=== PATIENT | female | born 1990 | race Caucasian/White ===

== ENCOUNTER 2016-12-17 23:31 | Inpatient (IN) | payer OTHER ==
[2016-12-18] MEDS ORDERED: Penicillin G Potassium IV* 5 MILLION.UNITS VIAL ONE (00:29)
[2016-12-18 00:46] LABS: Hematocrit 37 % (35-47); Hemoglobin 12.4 g/dl (12.0-16.0); Mean Corpuscular HGB Conc 34 g/dl (31-36); Mean Corpuscular Hemoglobin 32 pg (27-31); Mean Corpuscular Volume 94 fL (80-97); Mean Platelet Volume 12 um3 (7.4-10.4); Red Blood Count 3.94 10^6/ul (4.0-5.4); Red Cell Distribution Width 13 % (10.5-15); White Blood Count 17.2 10^3/ul (3.5-10.8)
[2016-12-18] MEDS ORDERED: OBEPIDURAL* 250 ML ONE (00:57)
[2016-12-18] MEDS ORDERED: Famotidine TAB* 20 MG PO PRN (01:18)
[2016-12-18] MEDS ORDERED: Sodium Citrate/Citric Acid* 15 ML UDC PO PRN (01:18)
[2016-12-18] MEDS ORDERED: EPHEDrine (Pressors)* 50 MG/ML VIAL IV PUSH PRN (01:18)
[2016-12-18] MEDS ORDERED: Phenylephrine IV* 40 MCG/ML 10 ML SYRINGE IV PUSH PRN (01:18)
[2016-12-18 01:31] LABS: Albumin 3.7 g/dL (3.2-5.2); BUN/Creatinine Ratio 16.4 (8-20); Calcium 8.9 mg/dL (8.6-10.3); EGFR African American 136.8 (>60); EGFR Non-African American 106.4 (>60); Globulin 3.2 g/dL (2-4); Total Bilirubin 0.4 mg/dL (0.2-1.0); Total Protein 6.9 g/dL (6.4-8.9)
[2016-12-18] MEDS ORDERED: OBEPIDURAL* 250 ML EPIDURAL SCH (02:00)
[2016-12-18] MEDS ORDERED: Oxytocin in LR* 20 UNITS/1,000 ML BAG IVPB ONE (05:51)
[2016-12-18] MEDS ORDERED: Misoprostol TAB* 200 MCG ONE (05:55)
[2016-12-18] MEDS ORDERED: Dibucaine 1% 28.35 GM TUBE PR PRN (06:17)
[2016-12-18] MEDS ORDERED: Glycerin ADULT SUPP PR PRN (06:17)
[2016-12-18] MEDS ORDERED: Misoprostol TAB* 200 MCG PR ONE (06:17)
[2016-12-18] MEDS ORDERED: Witch Hazel PAD* JAR TOPICAL PRN (06:17)
[2016-12-18] MEDS ORDERED: oxyCODONE/Acetamin 5/325 MG* TAB PO PRN (06:17)
[2016-12-18] MEDS ORDERED: Acetaminophen TAB* 325 MG PO PRN (06:17)
[2016-12-18] MEDS: Docusate CAP* 100 MG PO SCH ×3 (08:37→21:13)
[2016-12-18] MEDS: Ibuprofen TAB* 600 MG PO PRN ×2 (14:22→21:12)
[2016-12-18] MEDS: Simethicone CHEW TAB* 80 MG PO SCH ×2 (14:23→14:24)
[2016-12-19 07:03] LABS: Hematocrit 30 % (35-47); Hemoglobin 10.2 g/dl (12.0-16.0); Mean Corpuscular HGB Conc 34 g/dl (31-36); Mean Corpuscular Hemoglobin 32 pg (27-31); Mean Corpuscular Volume 96 fL (80-97); Mean Platelet Volume 12 um3 (7.4-10.4); Red Blood Count 3.18 10^6/ul (4.0-5.4); Red Cell Distribution Width 13 % (10.5-15); White Blood Count 14.1 10^3/ul (3.5-10.8)
[2016-12-19] MEDS: Ibuprofen TAB* 600 MG PO PRN ×3 (07:51→22:22)
[2016-12-19] MEDS: Docusate CAP* 100 MG PO SCH ×3 (07:52→22:22)
[2016-12-19] MEDS ORDERED: Ferrous Gluconate TAB* 324 MG TAB PO SCH (09:00)
[2016-12-19] MEDS: Simethicone CHEW TAB* 80 MG PO SCH (10:33)
[2016-12-20 08:20] VITALS: BP 136/74
[2016-12-20] MEDS ORDERED: Ammonia Inhalant* 1 EA AMP ONE (09:25)
== END 2016-12-20 10:27 | disposition home or self-care (01) | DRG 560 ==
LOC: MCHOBOUT 23:31 → MCHOB 12-18 00:06
PROVIDERS: ADMIT Nurse Practitioner; ATTEND Obstetrics & Gynecology
PROC: 10D07Z6 Extraction of Products of Conception, Vacuum, Via Natural or Artificial Opening (ICD-10-PCS; principal; 2016-12-18)
PROC: 10907ZC Drainage of Amniotic Fluid, Therapeutic from Products of Conception, Via Natural or Artificial Opening (ICD-10-PCS; 2016-12-18)
PROC: 4A1HXCZ Monitoring of Products of Conception, Cardiac Rate, External Approach (ICD-10-PCS; 2016-12-18)
PROC: 0W8NXZZ Division of Female Perineum, External Approach (ICD-10-PCS; 2016-12-18)
PROC: 10H073Z Insertion of Monitoring Electrode into Products of Conception, Via Natural or Artificial Opening (ICD-10-PCS; 2016-12-18)
PROC: 4A1H7CZ Monitoring of Products of Conception, Cardiac Rate, Via Natural or Artificial Opening (ICD-10-PCS; 2016-12-18)
DX: O69.3XX0 Labor and delivery complicated by short cord, not applicable or unspecified (principal); O99.824 Streptococcus B carrier state complicating childbirth; Z3A.39 39 weeks gestation of pregnancy; Z37.0 Single live birth; O76 Abnormality in fetal heart rate and rhythm complicating labor and delivery
CPT/HCPCS: 36415; 80053; 85025; 85027; 86850; 86900; 86901; A9270-GY; J2540

== ENCOUNTER 2017-08-05 07:12 | Emergency (ER) | payer OTHER ==
[2017-08-05 07:24] VITALS: BP 151/93
--- NOTE | 2017-08-05 11:18 | UC ---
Tc Bowman Elizabeth, scribed for Nataliia Mcnamara DO on 08/05/17 at 0814 . General HPI - HPI Summary HPI Summary: The patient is a 27 year old female complaining of jaw pain and fever that began 5 days ago. Pt thought that she had a tooth infection becuase the pain was in her tmj and mandible bl. However, dental work-up was negative. Pt states that she has been taking ibuprofen 200-400mg q6-8 hours to control pain and fever. She states that when the pain meds wear off the fever returns and she the pain that starts in the tmj and makes everything in the head and neck hurt including her throat. The patient additionally complains of, fatigue, weakness, upper body aches and mild headache. The patient denies coughing, sinus congestion, earache, stomach ache, nausea, or vomiting. Patient notes that taking ibuprofen alleviates her pain considerably. - History of Current Complaint Chief Complaint: UCGeneralIllness Stated Complaint: FEVER Time Seen by Provider: 08/05/17 07:33 Hx Obtained From: Patient Hx Last Menstrual Period: 07/28/17 Onset/Duration: Lasting Days, Still Present Onset Severity: Mild Current Severity: Mild Pain Intensity: 4 Associated Signs & Symptoms: Positive: Fever, Headache, Weakness, Other. Negative: Abdominal Pain, Cough, Vomiting - Allergy/Home Medications Allergies/Adverse Reactions: Allergies Allergy/AdvReac Type Severity Reaction Status Date / Time No Known Allergies Allergy Verified 12/18/16 00:35 PMH/Surg Hx/FS Hx/Imm Hx Previously Healthy: Yes - Surgical History Surgical History: None - Family History Known Family History: Positive: Hypertension - Social History Occupation: Employed Full-time Alcohol Use: None Substance Use Type: None Smoking Status (MU): Smoker, Current Status Unknown Type: Cigarettes Have You Smoked in the Last Year: Yes Household Exposure Type: Cigarettes Cessation Counseling: Patient Advised to Stop - Immunization History Most Recent Influenza Vaccination: 2016 Most Recent Pneumonia Vaccination: never Review of Systems Constitutional: Fever, Fatigue ENT: Sore Throat, Sinus Congestion, Other - NEGATIVE EAR ACHE, POSITIVE JAW PAIN Gastrointestinal: Other - NEGATIVE NAUSEA, NEGATIVE VOMITING Neurological: Headache All Other Systems Reviewed And Are Negative: Yes Physical Exam - Summary Physical Exam Summary: Appearance: Well-Appearing, No Pain Distress, Well-Nourished Eyes: conjunctiva clear, no discharge ENT: Hearing grossly normal, no muffled/hoarse voice. Tonsils are enlarged without exudates. TMs normal, negative trismus. Neck: Normal, Supple Respiratory/Lung Sounds: Lungs clear, Normal breath sounds, No respiratory distress, No accessory muscle use Cardiovascular: RRR, No murmur Musculoskeletal: Normal Neurological: Alert, muscle tone normal Psychiatric:Normal, age appropriate behavior Skin: Normal, Warm, Dry, Normal color Triage Information Reviewed: Yes Vital Signs: Initial Vital Signs Temp 98.6 F 08/05/17 07:17 Pulse 114 08/05/17 07:17 Resp 16 08/05/17 07:17 BP 151/93 08/05/17 07:17 Pulse Ox 100 08/05/17 07:17 Vital Signs Reviewed: Yes Course/Dx - Course Course Of Treatment: Within a half hour after discharge, I realized I should have considered mono as a possible cause of pt sx. I asked nursing to contact pt. when pt called back i spoke with her personally. I apologized for the inconvience and asked her to return for a monospot. i explained that this was important because if she had mono, we could possibly stop the doxy and just tx for mono. pt stated that she would return for the test. my shift is not ending and pt has yet to return. so, i called again to check in with her. There was no answer. I then left a message for her to talk to abiodun james when she calls back. - Differential Dx - Multi-Symptom Provider Diagnoses: lyme disease, high blood pressure without dx of htn Discharge - Discharge Plan Condition: Stable Disposition: HOME Prescriptions: DOXYcycline CAP(*) [DOXYcycline 100MG CAP(*)] 100 mg PO BID #42 cap Patient Education Materials: Lyme Disease (ED) Referrals: Renetta Floyd CNM [Primary Care Provider] - 7 Days Additional Instructions: DOXYCYCLINE: Doxycycline (Vibramycin, Doryx) is an antibiotic of the tetracycline family. This type of drug is useful for infections of the respiratory tract and genital tract, and is sometimes used for intestinal infections. Unlike most tetracyclines, doxycycline can be taken with food. It is longer acting, and (usually) less prone to side effects than regular tetracycline. Tetracycline antibiotics can stain immature teeth and SHOULD NOT BE TAKEN BY CHILDREN, NURSING MOTHERS, OR WOMEN. Tetracyclines can make you more prone to sunburn. Abdominal cramping, nausea, and diarrhea are occasional side effects. Women may experience vaginal yeast infections. Call the doctor at once if you develop hives, itching, shortness of breath , or lightheadedness. DISCUSSED, DOXY ALSO INCREASES YOUR RISK OF SUNBURN. COVER UP WHEN YOU GO OUTSIDE. ANYTIME YOU TAKE AN ANTIBIOTIC, IT IS IMPORTANT TO REPLENISH THE BODY'S SUPPLY OF "GOOD BACTERIA." YOU CAN GET GOOD BACTERIA FROM HIGH QUALITY CULTURED FOODS SUCH LOCAL YOGURT, SOUR KRAUT, PADMAJA LADONNA, NATURALLY FERMENTED PICKLES AND PROBIOTIC DRINKS. YOU CAN ALSO GET GOOD BACTERIA FROM A PROBIOTIC SUPPLEMENT. FOLLOW-UP CARE: You should establish with a private physician for follow-up care in 1 week for Lyme disease testing. If you are unable to get a timely appointment, or if you are worsening, call us or return for re-evaluation. An additional resource available to assist in finding the appropriate physician for your health care needs is the [facility]erral [facility]. You may contact them by calling [phone]. The documentation as recorded by the Tc johnson Elizabeth accurately reflects the service I personally performed and the decisions made by me, Nataliia Mcnamara DO.
== END 2017-08-05 09:00 | disposition home or self-care (01) ==
LOC: UCEAST 07:12
DX: A69.20 Lyme disease, unspecified (principal); R03.0 Elevated blood-pressure reading, without diagnosis of hypertension; F17.210 Nicotine dependence, cigarettes, uncomplicated
CPT/HCPCS: 87502; 87651; 99211; G0463